=== PATIENT | male | born 1940 | race Caucasian/White ===

== ENCOUNTER 2020-06-08 10:06 | Inpatient (IN) ==
[2020-06-08] MEDS ORDERED: Azithromycin 250 MG TABLET PO ONE (10:20)
[2020-06-08] MEDS ORDERED: methylPREDNISolone 125 MG/2 ML VIAL IVP ONE (10:20)
[2020-06-08] MEDS ORDERED: Ipratropium/Albuterol Neb 3 ML IH ONE (10:20)
[2020-06-08 10:52] LABS: Basophils % 1.4 %; Immature Granulocytes % 0.3 % (0-4); Platelet Count 153 K/mcL (140-400)
[2020-06-08 10:53] LABS: Basophils # 0.1 K/mcL (0.0-0.2); Eosinophils # 0.1 K/mcL (0.0-0.6); Eosinophils % 3.1 %; Hematocrit 21.3 % (37.5-50.1); Lymphocytes # 0.9 K/mcL (0.6-4.6); Lymphocytes % 26.2 %; Mean Corpuscular HGB Conc 27.2 g/dL (31.6-35.5); Mean Corpuscular Hemoglobin 22.7 pg (28.0-33.3); Mean Corpuscular Volume 83.5 fL (83.0-100.0); Mean Platelet Volume 10.9 fL (9.4-12.4); Monocytes # 0.4 K/mcL (0.0-1.3); Monocytes % 12.1 %; Red Blood Count 2.55 M/mcL (4.19-5.50); Segmented Neutrophils % 56.9 %; White Blood Count 3.6 K/mcL (4.3-11.1)
[2020-06-08 10:58] LABS: Neutrophils # 2.1 K/mcL (1.6-8.9)
[2020-06-08 11:00] LABS: Hemoglobin 5.8 g/dL (12.9-16.9)
[2020-06-08 11:08] LABS: INR 1.2; Prothrombin Time 13.4 Seconds (9.4-12.1)
[2020-06-08 11:11] LABS: Activated Partial Thrombo Time 30.4 Seconds (26.0-36.0)
[2020-06-08 11:15] LABS: Alanine Aminotransferase 11 Units/L (7-52); Albumin 3.3 g/dL (3.5-5.7); Albumin/Globulin Ratio 1.4 (1.1-2.2); Alkaline Phosphatase 76 Units/L (34-104); Aspartate Amino Transferase 19 Units/L (13-39); BUN/Creatinine Ratio 23 (6-26); Bilirubin,Direct 0.1 mg/dL (0.0-0.2); Bilirubin,Indirect 0.4 mg/dL (0.0-1.0); Bilirubin,Total 0.5 mg/dL (0.3-1.0); Blood Urea Nitrogen 16 mg/dL (8-23); Calcium 8.1 mg/dL (8.6-10.3); Carbon Dioxide 27 mEq/L (23-29); Chloride 108 mEq/L (98-107); Globulin 2.3 g/dL (2.4-3.5); Glucose 138 mg/dL (70-105); Osmolality,Calculated 293 (280-300); Potassium 4.3 mEq/L (3.5-5.1); Sodium 140 mEq/L (136-145); Total Protein 5.6 g/dL (6.4-8.9); Troponin I 0.07 ng/mL (< 0.04); eGFR For African Americans > 60 (> 60); eGFR For Non-African Americans > 60 (> 60)
[2020-06-08 11:21] LABS: Anisocytosis 1+ (Not Present); Hypochromasia Present (Not Present); Platelet Estimate Normal (Normal)
[2020-06-08 11:22] LABS: Large Platelets Present (Not Present); Poikilocytosis 1+ (Not Present)
[2020-06-08 12:52] LABS: Adenovirus Not Detected (Not Detect); Coronavirus 229E Not Detected (Not Detect); Coronavirus HKU1 Not Detected (Not Detect); Coronavirus NL63 Not Detected (Not Detect); Coronavirus OC43 Not Detected (Not Detect); Human Metapneumovirus Not Detected (Not Detect); Human Rhinovirus/Enterovirus Not Detected (Not Detect); SARS-CoV-2 Not Detected (Not Detect)
[2020-06-08 12:53] LABS: Bordetella Pertussis Not Detected (Not Detect); Chlamydophila pneumoniae Not Detected (Not Detect); Influenza A Subtype 2009 H1 Not Detected (Not Detect); Influenza B Not Detected (Not Detect); Mycoplasma pneumoniae Not Detected (Not Detect); Parainfluenza Virus 1 Not Detected (Not Detect); Parainfluenza Virus 2 Not Detected (Not Detect); Parainfluenza Virus 3 Not Detected (Not Detect); Parainfluenza Virus 4 Not Detected (Not Detect); Respiratory Syncytial Virus Not Detected (Not Detect)
[2020-06-08] MEDS ORDERED: Naloxone 0.4 MG/ML INJ IVP PRN (13:32)
[2020-06-08] MEDS ORDERED: Albuterol 2.5 MG/3 ML NEBULIZER IH PRN (13:36)
[2020-06-08] MEDS ORDERED: Perflutren Lipid Microsphere 1.3 ML in 0.9 % Sodium Chloride 8.7 ML IVP PRN (14:00)
[2020-06-08] MEDS ORDERED: cefTRIAXone 1,000 MG in 0.9 % Sodium Chloride Mini Bag 100 ML IVPB SCH (14:00)
[2020-06-08] MEDS ORDERED: Furosemide 40 MG/4 ML VIAL IVP ONE (15:33)
[2020-06-08] MEDS: Pantoprazole 40 MG VIAL IVP SCH (16:28)
[2020-06-08] MEDS: methylPREDNISolone 125 MG/2 ML VIAL IVP SCH (16:28)
[2020-06-08] MEDS: cefTRIAXone 1,000 MG in Water for inj. (sterile) 20 ML IVP SCH (16:29)
[2020-06-08] MEDS ORDERED: 0.9 % Sodium Chloride 250 ML ONE ×2 (17:26→23:12)
[2020-06-08] MEDS: Ipratropium/Albuterol Neb 3 ML IH SCH ×2 (18:07→22:45)
[2020-06-08] MEDS ORDERED: Acetaminophen 325 MG TABLET PO ONE (23:49)
[2020-06-09] MEDS: methylPREDNISolone 125 MG/2 ML VIAL IVP SCH ×4 (00:01→20:09)
[2020-06-09 02:09] LABS: Basophils % 0.6 %
[2020-06-09 02:11] LABS: Eosinophils % 0.6 %; Hemoglobin 8.5 g/dL (12.9-16.9); Immature Granulocytes % 0.6 % (0-4); Lymphocytes # 0.2 K/mcL (0.6-4.6); Lymphocytes % 15.1 %; Mean Corpuscular HGB Conc 30.4 g/dL (31.6-35.5); Mean Corpuscular Hemoglobin 25.3 pg (28.0-33.3); Mean Corpuscular Volume 83.3 fL (83.0-100.0); Mean Platelet Volume 10.3 fL (9.4-12.4); Monocytes # 0.1 K/mcL (0.0-1.3); Monocytes % 6.9 %; Neutrophils # 1.2 K/mcL (1.6-8.9); Platelet Count 134 K/mcL (140-400); Red Blood Count 3.36 M/mcL (4.19-5.50); Segmented Neutrophils % 76.2 %; White Blood Count 1.6 K/mcL (4.3-11.1)
[2020-06-09 02:26] LABS: BUN/Creatinine Ratio 21 (6-26); Blood Urea Nitrogen 15 mg/dL (8-23); Carbon Dioxide 28 mEq/L (23-29); Chloride 103 mEq/L (98-107); Glucose 129 mg/dL (70-105); Osmolality,Calculated 293 (280-300); Potassium 4.1 mEq/L (3.5-5.1); Sodium 140 mEq/L (136-145); eGFR For African Americans > 60 (> 60); eGFR For Non-African Americans > 60 (> 60)
[2020-06-09 02:27] LABS: % Iron Saturation 5 % (20-55); Iron 17 mcg/dL (65-175); Transferrin 243 mg/dL (203-362)
[2020-06-09 02:36] LABS: Anisocytosis 1+ (Not Present); Hypochromasia Present (Not Present); Platelet Estimate Slight Decrease (Normal)
[2020-06-09 02:46] LABS: Ferritin 17 ng/mL (20-250)
[2020-06-09 02:51] LABS: Folate 16.4 ng/mL (3.0-16.0)
[2020-06-09] MEDS: Ipratropium/Albuterol Neb 3 ML IH SCH ×4 (03:56→21:46)
[2020-06-09] MEDS: Pantoprazole 40 MG VIAL IVP SCH ×2 (05:46→18:06)
[2020-06-09] MEDS: Azithromycin 250 MG TABLET PO SCH (07:29)
[2020-06-09] MEDS ORDERED: *HR* OxyCODONE Immed Rel 5 MG TABLET PO PRN (11:59)
[2020-06-09] MEDS: *HR* HYDROcodone/Acet 5/325 mg TABLET PO PRN ×2 (12:22→18:06)
[2020-06-09] MEDS: cefTRIAXone 1,000 MG in Water for inj. (sterile) 20 ML IVP SCH (15:02)
[2020-06-10 00:55] LABS: Hematocrit 26.3 % (37.5-50.1); Hemoglobin 7.9 g/dL (12.9-16.9); Mean Corpuscular Hemoglobin 24.9 pg (28.0-33.3); Mean Platelet Volume 10.4 fL (9.4-12.4); Platelet Count 129 K/mcL (140-400); Red Blood Count 3.17 M/mcL (4.19-5.50); Red Cell Distribution Width 17.2 % (11.5-14.5)
[2020-06-10 00:58] LABS: White Blood Count 3.9 K/mcL (4.3-11.1)
[2020-06-10 01:15] LABS: BUN/Creatinine Ratio 41 (6-26); Blood Urea Nitrogen 26 mg/dL (8-23); Calcium 7.9 mg/dL (8.6-10.3); Carbon Dioxide 27 mEq/L (23-29); Chloride 107 mEq/L (98-107); Glucose 137 mg/dL (70-105); Osmolality,Calculated 297 (280-300); Potassium 4.4 mEq/L (3.5-5.1); Sodium 140 mEq/L (136-145); eGFR For African Americans > 60 (> 60); eGFR For Non-African Americans > 60 (> 60)
[2020-06-10] MEDS: *HR* HYDROcodone/Acet 5/325 mg TABLET PO PRN ×3 (01:42→16:28)
[2020-06-10] MEDS: Ipratropium/Albuterol Neb 3 ML IH SCH ×4 (04:25→21:24)
[2020-06-10] MEDS: methylPREDNISolone 125 MG/2 ML VIAL IVP SCH ×3 (05:56→19:30)
[2020-06-10] MEDS: Pantoprazole 40 MG VIAL IVP SCH ×2 (06:00→16:29)
[2020-06-10] MEDS: Pregabalin 50 MG CAPSULE PO SCH (07:31)
[2020-06-10] MEDS: Azithromycin 250 MG TABLET PO SCH (07:32)
[2020-06-10 11:04] LABS: Hemoglobin 8.8 g/dL (12.9-16.9)
[2020-06-10] MEDS: cefTRIAXone 1,000 MG in Water for inj. (sterile) 20 ML IVP SCH (15:11)
[2020-06-10] MEDS ORDERED: SODIUM CHLORIDE/NAHCO3/KCL/PEG 4,000 ML SOLN.RECON PO ONE (17:00)
[2020-06-10 18:27] LABS: Hematocrit 26.8 % (37.5-50.1); Hemoglobin 7.9 g/dL (12.9-16.9)
[2020-06-11] MEDS: Ipratropium/Albuterol Neb 3 ML IH SCH ×4 (03:21→21:37)
[2020-06-11] MEDS: methylPREDNISolone 125 MG/2 ML VIAL IVP SCH ×3 (05:06→23:56)
[2020-06-11] MEDS: Pantoprazole 40 MG VIAL IVP SCH ×2 (05:07→17:08)
[2020-06-11] MEDS: *HR* HYDROcodone/Acet 5/325 mg TABLET PO PRN ×3 (06:02→17:08)
[2020-06-11] MEDS: Pregabalin 50 MG CAPSULE PO SCH (07:35)
[2020-06-11] MEDS: Azithromycin 250 MG TABLET PO SCH (07:35)
[2020-06-11 12:40] LABS: Hemoglobin 8.5 g/dL (12.9-16.9); Mean Corpuscular HGB Conc 29.3 g/dL (31.6-35.5); Mean Corpuscular Hemoglobin 24.5 pg (28.0-33.3); Mean Corpuscular Volume 83.6 fL (83.0-100.0); Mean Platelet Volume 10.5 fL (9.4-12.4); Platelet Count 107 K/mcL (140-400); Red Blood Count 3.47 M/mcL (4.19-5.50)
[2020-06-11] MEDS ORDERED: Lidocaine -MPF 2% 2 ML VIAL ONE (12:48)
[2020-06-11 12:53] LABS: BUN/Creatinine Ratio 24 (6-26); Blood Urea Nitrogen 15 mg/dL (8-23); Calcium 7.8 mg/dL (8.6-10.3); Carbon Dioxide 30 mEq/L (23-29); Chloride 106 mEq/L (98-107); Glucose 112 mg/dL (70-105); Osmolality,Calculated 294 (280-300); Sodium 141 mEq/L (136-145); eGFR For African Americans > 60 (> 60); eGFR For Non-African Americans > 60 (> 60)
[2020-06-11] MEDS ORDERED: *HR* PHENYLEPHRINE 1,000 MCG/10 ML SYRINGE IVP ONE (14:24)
[2020-06-12] MEDS: Ipratropium/Albuterol Neb 3 ML IH SCH ×3 (04:04→16:05)
[2020-06-12] MEDS: Pantoprazole 40 MG VIAL IVP SCH (05:08)
[2020-06-12 06:25] LABS: BUN/Creatinine Ratio 29 (6-26); Blood Urea Nitrogen 19 mg/dL (8-23); Calcium 7.8 mg/dL (8.6-10.3); Carbon Dioxide 30 mEq/L (23-29); Chloride 107 mEq/L (98-107); Glucose 96 mg/dL (70-105); Magnesium 2.4 mg/dL (1.6-2.6); Osmolality,Calculated 300 (280-300); Potassium 4.5 mEq/L (3.5-5.1); Sodium 144 mEq/L (136-145); eGFR For African Americans > 60 (> 60); eGFR For Non-African Americans > 60 (> 60)
[2020-06-12 06:26] LABS: Immature Platelets 5.2 % (1.1-6.1); Mean Corpuscular HGB Conc 29.6 g/dL (31.6-35.5); Mean Corpuscular Hemoglobin 24.7 pg (28.0-33.3); Mean Corpuscular Volume 83.3 fL (83.0-100.0); Mean Platelet Volume 11.3 fL (9.4-12.4); Red Blood Count 3.24 M/mcL (4.19-5.50); Red Cell Distribution Width 18.5 % (11.5-14.5); White Blood Count 2.9 K/mcL (4.3-11.1)
[2020-06-12] MEDS: Pregabalin 50 MG CAPSULE PO SCH (07:54)
[2020-06-12] MEDS: *HR* HYDROcodone/Acet 5/325 mg TABLET PO PRN ×2 (07:54→16:55)
[2020-06-12] MEDS ORDERED: 0.9 % Sodium Chloride 250 ML IVC SCH (09:45)
[2020-06-12] MEDS: methylPREDNISolone 125 MG/2 ML VIAL IVP SCH (10:32)
[2020-06-12 13:22] VITALS: BP 106/58
[2020-06-12 16:07] LABS: Hematocrit 32.3 % (37.5-50.1); Hemoglobin 9.9 g/dL (12.9-16.9)
[2020-06-12] MEDS ORDERED: predniSONE 20 MG TABLET PO ONE ×3 (16:25→17:00)
== END 2020-06-12 17:41 | disposition home or self-care (01) | DRG 377 ==
LOC: EMEROOARM 10:06 → 2ANU 10:06 → SUATTDRO 14:39 → 2ANU 15:21
PROVIDERS: ADMIT Internal Medicine; ATTEND Internal Medicine

== ENCOUNTER 2021-06-11 14:16 | Inpatient (IN) ==
[2021-06-11] MEDS ORDERED: Ipratropium/Albuterol Neb 3 ML IH ONE (15:16)
[2021-06-11] MEDS ORDERED: methylPREDNISolone 125 MG/2 ML VIAL IVP ONE (15:16)
[2021-06-11] MEDS ORDERED: Azithromycin 500 MG in 0.9 % Sodium Chloride 250 ML IVPB ONE (15:16)
[2021-06-11] MEDS ORDERED: Isovue-370 500 ML BOTTLE IVP ONE (15:16)
[2021-06-11 15:30] LABS: Basophils % 1.4 %; Eosinophils # 0.1 K/mcL (0.0-0.6); Eosinophils % 5.4 %; Hemoglobin 12.7 g/dL (12.9-16.9); Lymphocytes # 0.9 K/mcL (0.6-4.6); Lymphocytes % 38.7 %; Mean Corpuscular HGB Conc 30.2 g/dL (31.6-35.5); Mean Corpuscular Hemoglobin 25.8 pg (28.0-33.3); Mean Corpuscular Volume 85.2 fL (83.0-100.0); Mean Platelet Volume 9.4 fL (9.4-12.4); Monocytes # 0.4 K/mcL (0.0-1.3); Monocytes % 16.7 %; Neutrophils # 0.8 K/mcL (1.6-8.9); Platelet Count 148 K/mcL (140-400); Red Blood Count 4.93 M/mcL (4.19-5.50); Segmented Neutrophils % 37.8 %; White Blood Count 2.2 K/mcL (4.3-11.1)
[2021-06-11 16:00] LABS: BUN/Creatinine Ratio 16 (6-26); Blood Urea Nitrogen 15 mg/dL (8-23); Carbon Dioxide 33 mEq/L (23-29); Chloride 104 mEq/L (98-107); Glucose 122 mg/dL (70-105); Osmolality,Calculated 294 (280-300); Potassium 4.1 mEq/L (3.5-5.1); Sodium 141 mEq/L (136-145); eGFR For African Americans > 60 (> 60); eGFR For Non-African Americans > 60 (> 60)
[2021-06-11 16:01] LABS: Troponin I 0.03 ng/mL (< 0.04)
[2021-06-11] MEDS ORDERED: Furosemide 40 MG/4 ML VIAL IVP ONE (18:05)
[2021-06-11 20:21] LABS: Influenza A PCR Negative (Negative); Influenza B PCR Negative (Negative); Resp. Syncytial Virus PCR Negative (Negative)
[2021-06-11 20:24] LABS: SARS-CoV-2 by PCR (In House) Negative (Negative)
[2021-06-11] MEDS ORDERED: *HR* HYDROcodone/Acet 5/325 mg TABLET PO PRN (20:57)
[2021-06-11] MEDS ORDERED: Naloxone 0.4 MG/ML INJ IVP PRN (20:57)
[2021-06-11] MEDS ORDERED: Melatonin 3 MG TABLET PO PRN (20:57)
[2021-06-11] MEDS ORDERED: Acetaminophen 325 MG TABLET PO PRN (20:57)
[2021-06-11] MEDS ORDERED: *HR* Promethazine 25 MG/ML VIAL IM PRN (20:57)
[2021-06-11] MEDS ORDERED: Furosemide 20 MG/2 ML VIAL IVP ONE (21:22)
[2021-06-12] MEDS: Budesonide/Formoterol 160/4.5 1 PUFF INH IH SCH ×3 (00:08→20:50)
[2021-06-12] MEDS: Ipratropium/Albuterol Neb 3 ML IH SCH ×7 (00:17→23:42)
[2021-06-12 04:15] LABS: Hematocrit 41.6 % (37.5-50.1); Mean Corpuscular HGB Conc 31.3 g/dL (31.6-35.5); Mean Corpuscular Hemoglobin 25.8 pg (28.0-33.3); Mean Corpuscular Volume 82.5 fL (83.0-100.0); Platelet Count 162 K/mcL (140-400); Red Blood Count 5.04 M/mcL (4.19-5.50); Red Cell Distribution Width 15.9 % (11.5-14.5)
[2021-06-12 04:29] LABS: BUN/Creatinine Ratio 18 (6-26); Blood Urea Nitrogen 18 mg/dL (8-23); Calcium 9.1 mg/dL (8.6-10.3); Carbon Dioxide 32 mEq/L (23-29); Chloride 102 mEq/L (98-107); Glucose 150 mg/dL (70-105); Lactate Dehydrogenase 168 Units/L (140-271); Osmolality,Calculated 299 (280-300); Phosphorous 3.9 mg/dL (2.7-4.5); Potassium 4.2 mEq/L (3.5-5.1); Sodium 142 mEq/L (136-145); Total Protein 6.7 g/dL (6.4-8.9); eGFR For African Americans > 60 (> 60); eGFR For Non-African Americans > 60 (> 60)
[2021-06-12 04:30] LABS: INR 1.1; Prothrombin Time 11.7 Seconds (9.4-12.1)
[2021-06-12] MEDS: MethylPREDNISolone 40 MG/ML VIAL IVP SCH ×2 (05:55→17:24)
[2021-06-12 06:22] LABS: Bilirubin,Urine Negative (Negative); Blood,Urine Trace (Negative); Clarity,Urine Clear (Clear); Color,Urine Colorless (Yellow); Glucose,Urine (UA) 50 mg/dL (Normal); Ketones,Urine Negative (Negative); Leukocyte Esterase,Urine Negative (Negative); Nitrite,Urine Negative (Negative); Protein,Urine Negative (Neg-Trace); Specific Gravity,Urine 1.017 (1.010-1.025); Squamous Epithelial Cell,Urine Few per hpf (None-Few); Urobilinogen,Urine Normal (Normal); WBC,Urine 0-3 per hpf (0-3)
[2021-06-12] MEDS: Azithromycin 250 MG TABLET PO SCH (08:51)
[2021-06-12] MEDS: Cholecalciferol (D-3) 1,000 UNIT (25MCG) TABLET PO SCH (08:51)
[2021-06-12] MEDS: Furosemide 20 MG/2 ML VIAL IVP SCH ×2 (08:52→21:00)
[2021-06-12] MEDS ORDERED: *HR* Enoxaparin 40 MG/0.4 ML SYRINGE SQ SCH (09:00)
[2021-06-12] MEDS ORDERED: Chlorhexidine Rinse 15 ML MOUTHWASH MM SCH (09:00)
[2021-06-12 19:27] LABS: RBC,Pleural Fluid 3000 RBC/mcL
[2021-06-12 19:40] LABS: Glucose,Pleural Fluid 212 mg/dL (No Ref Range); LDH,Pleural Fluid 66 Units/L (No Ref Range); Total Protein,Pleural Fluid < 2.0 g/dL
[2021-06-12 20:06] LABS: Appearance of Pleural Fl Hazy (Clear)
[2021-06-12 20:30] LABS: Basophils,Pleural Fluid 0 %; Eosinophils,Pleural Fluid 0 %
[2021-06-13 03:35] LABS: Basophils % 0.3 %; Hematocrit 37.8 % (37.5-50.1); Hemoglobin 12.1 g/dL (12.9-16.9); Immature Granulocytes % 0.3 % (0-4); Lymphocytes # 0.5 K/mcL (0.6-4.6); Mean Corpuscular Hemoglobin 26.6 pg (28.0-33.3); Mean Corpuscular Volume 83.1 fL (83.0-100.0); Mean Platelet Volume 10.6 fL (9.4-12.4); Monocytes # 0.4 K/mcL (0.0-1.3); Monocytes % 11.7 %; Platelet Count 159 K/mcL (140-400); Red Blood Count 4.55 M/mcL (4.19-5.50); Red Cell Distribution Width 15.9 % (11.5-14.5); Segmented Neutrophils % 75.7 %
[2021-06-13 03:38] LABS: Neutrophils # 2.9 K/mcL (1.6-8.9); White Blood Count 3.8 K/mcL (4.3-11.1)
[2021-06-13] MEDS: Ipratropium/Albuterol Neb 3 ML IH SCH ×3 (03:43→10:51)
[2021-06-13 03:49] LABS: BUN/Creatinine Ratio 28 (6-26); Blood Urea Nitrogen 30 mg/dL (8-23); Calcium 8.9 mg/dL (8.6-10.3); Carbon Dioxide 32 mEq/L (23-29); Chloride 100 mEq/L (98-107); Glucose 179 mg/dL (70-105); Osmolality,Calculated 299 (280-300); Potassium 4.2 mEq/L (3.5-5.1); Sodium 139 mEq/L (136-145); eGFR For African Americans > 60 (> 60); eGFR For Non-African Americans > 60 (> 60)
[2021-06-13] MEDS: MethylPREDNISolone 40 MG/ML VIAL IVP SCH (05:47)
[2021-06-13] MEDS ORDERED: *HR* Enoxaparin 40 MG/0.4 ML SYRINGE SQ SCH (06:00)
[2021-06-13] MEDS: Budesonide/Formoterol 160/4.5 1 PUFF INH IH SCH (07:34)
[2021-06-13] MEDS: Azithromycin 250 MG TABLET PO SCH (08:19)
[2021-06-13] MEDS: Cholecalciferol (D-3) 1,000 UNIT (25MCG) TABLET PO SCH (08:19)
[2021-06-13] MEDS: Furosemide 20 MG/2 ML VIAL IVP SCH (08:20)
[2021-06-13 11:20] VITALS: BP 109/75; PULSE 99; TEMP 96.6; O2SAT 99
== END 2021-06-13 15:11 | disposition home health service (06) | DRG 190 ==
LOC: EMEROOARM 14:16 → 2ANU 14:16 → SUATTDRO 20:01 → 2ANU 21:35
PROVIDERS: ADMIT Internal Medicine; ATTEND Internal Medicine

== ENCOUNTER 2021-09-03 09:57 | Inpatient (IN) ==
[2021-09-03] MEDS ORDERED: Isovue-370 500 ML BOTTLE IVP ONE (12:38)
[2021-09-03] MEDS ORDERED: Ipratropium/Albuterol Neb 3 ML IH ONE (12:38)
[2021-09-03 13:15] LABS: Eosinophils # 0.1 K/mcL (0.0-0.6); Hematocrit 40.5 % (37.5-50.1); Hemoglobin 12.6 g/dL (12.9-16.9); Mean Corpuscular HGB Conc 31.1 g/dL (31.6-35.5); Mean Corpuscular Volume 83.5 fL (83.0-100.0); Mean Platelet Volume 9.4 fL (9.4-12.4); Platelet Count 146 K/mcL (140-400); Red Blood Count 4.85 M/mcL (4.19-5.50); Red Cell Distribution Width 17.8 % (11.5-14.5)
[2021-09-03 13:27] LABS: INR 1.1; Prothrombin Time 12.3 Seconds (9.4-12.1)
[2021-09-03 13:29] LABS: Activated Partial Thrombo Time 34.6 Seconds (26.0-36.0)
[2021-09-03 13:35] LABS: Alanine Aminotransferase 17 Units/L (7-52); Albumin 3.6 g/dL (3.5-5.7); Albumin/Globulin Ratio 1.4 (1.1-2.2); Alkaline Phosphatase 79 Units/L (34-104); Aspartate Amino Transferase 15 Units/L (13-39); BUN/Creatinine Ratio 13 (6-26); Bilirubin,Direct 0.2 mg/dL (0.0-0.2); Bilirubin,Indirect 0.7 mg/dL (0.0-1.0); Bilirubin,Total 0.9 mg/dL (0.3-1.0); Blood Urea Nitrogen 12 mg/dL (8-23); Calcium 9.2 mg/dL (8.6-10.3); Carbon Dioxide 32 mEq/L (23-29); Chloride 102 mEq/L (98-107); Globulin 2.6 g/dL (2.4-3.5); Glucose 106 mg/dL (70-105); Osmolality,Calculated 288 (280-300); Sodium 139 mEq/L (136-145); Total Protein 6.2 g/dL (6.4-8.9); Troponin I 0.03 ng/mL (< 0.04); eGFR For African Americans > 60 (> 60); eGFR For Non-African Americans > 60 (> 60)
[2021-09-03 13:42] LABS: Monocytes # 0.3 K/mcL (0.0-1.3); Neutrophils # 0.7 K/mcL (1.6-8.9); Platelet Estimate Slight Decrease (Normal)
[2021-09-03 13:52] LABS: ABG Base Excess 3 mEq/L (-2 to 3); ABG HCO3 29 mEq/L (21-27); ABG Oxygen Saturation 100 % (95-98); ABG PCO2 49 mmHg (35-45); ABG PH 7.38 pH Units (7.32-7.45); ABG PO2 190 mmHg (85-104); ABG TCO2 30 mEq/L (20-26)
[2021-09-03 14:50] LABS: Influenza A PCR Negative (Negative); Influenza B PCR Negative (Negative); Resp. Syncytial Virus PCR Negative (Negative)
[2021-09-03 14:51] LABS: SARS-CoV-2 by PCR (In House) Negative (Negative)
[2021-09-03] MEDS ORDERED: Azithromycin 500 MG in 0.9 % Sodium Chloride 250 ML IVPB ONE (15:35)
[2021-09-03] MEDS ORDERED: cefTRIAXone 1,000 MG in 0.9 % Sodium Chloride 10 ML IVP ONE (15:35)
[2021-09-03] MEDS ORDERED: Naloxone 0.4 MG/ML INJ IVP PRN (16:49)
[2021-09-03] MEDS ORDERED: Ipratropium/Albuterol Neb 3 ML IH PRN (16:55)
[2021-09-03] MEDS ORDERED: Acetaminophen 325 MG TABLET PO PRN (17:00)
[2021-09-03 17:37] LABS: Bilirubin,Urine Negative (Negative); Blood,Urine Negative (Negative); Clarity,Urine Clear (Clear); Color,Urine Light-Yellow (Yellow); Glucose,Urine (UA) Normal (Normal); Ketones,Urine 10 mg/dL (Negative); Leukocyte Esterase,Urine Negative (Negative); Nitrite,Urine Negative (Negative); Protein,Urine Negative (Neg-Trace); Specific Gravity,Urine > 1.030 (1.010-1.025); Urobilinogen,Urine Normal (Normal)
[2021-09-03] MEDS ORDERED: Perflutren Lipid Microsphere 1.3 ML in 0.9 % Sodium Chloride 8.7 ML IVP PRN (17:39)
[2021-09-03] MEDS: Furosemide 40 MG/4 ML VIAL IVP SCH (18:38)
[2021-09-04 05:16] LABS: Hematocrit 40.5 % (37.5-50.1); Hemoglobin 12.7 g/dL (12.9-16.9); Mean Corpuscular HGB Conc 31.4 g/dL (31.6-35.5); Mean Corpuscular Hemoglobin 26.1 pg (28.0-33.3); Mean Corpuscular Volume 83.3 fL (83.0-100.0); Mean Platelet Volume 9.4 fL (9.4-12.4); Platelet Count 149 K/mcL (140-400); Red Blood Count 4.86 M/mcL (4.19-5.50); Red Cell Distribution Width 17.8 % (11.5-14.5); White Blood Count 2.2 K/mcL (4.3-11.1)
[2021-09-04 05:25] LABS: Lymphocytes # 1.2 K/mcL (0.6-4.6)
[2021-09-04 05:37] LABS: BUN/Creatinine Ratio 13 (6-26); Blood Urea Nitrogen 12 mg/dL (8-23); Calcium 9.1 mg/dL (8.6-10.3); Carbon Dioxide 33 mEq/L (23-29); Chloride 99 mEq/L (98-107); Glucose 75 mg/dL (70-105); Osmolality,Calculated 290 (280-300); Potassium 4.6 mEq/L (3.5-5.1); Sodium 141 mEq/L (136-145); eGFR For African Americans > 60 (> 60); eGFR For Non-African Americans > 60 (> 60)
[2021-09-04 05:54] LABS: Monocytes # 0.3 K/mcL (0.0-1.3); Neutrophils # 0.7 K/mcL (1.6-8.9); Platelet Estimate Normal (Normal)
[2021-09-04] MEDS: *HR* Enoxaparin 40 MG/0.4 ML SYRINGE SQ SCH (05:56)
[2021-09-04] MEDS ORDERED: Ipratropium/Albuterol Neb 3 ML ONE (07:36)
[2021-09-04] MEDS: Ipratropium/Albuterol Neb 3 ML IH SCH ×4 (07:43→20:18)
[2021-09-04] MEDS ORDERED: Acetaminophen 325 MG TABLET PO SCH (10:30)
[2021-09-04] MEDS ORDERED: 0.9 % Sodium Chloride 500 ML IVC ONE (10:33)
[2021-09-04] MEDS: Furosemide 40 MG/4 ML VIAL IVP SCH (10:42)
[2021-09-04] MEDS: cefTRIAXone 2,000 MG in 0.9 % Sodium Chloride 20 ML IVP SCH (16:07)
[2021-09-04] MEDS: Azithromycin 250 MG TABLET PO SCH (16:07)
[2021-09-04] MEDS: Acetaminophen 325 MG TABLET PO SCH (19:09)
[2021-09-04] MEDS: methylPREDNISolone 125 MG/2 ML VIAL IVP SCH (21:47)
[2021-09-05] MEDS: Acetaminophen 325 MG TABLET PO SCH ×3 (00:09→16:35)
[2021-09-05] MEDS: Ipratropium/Albuterol Neb 3 ML IH SCH ×5 (00:30→15:39)
[2021-09-05] MEDS: methylPREDNISolone 125 MG/2 ML VIAL IVP SCH ×2 (06:42→12:33)
[2021-09-05] MEDS: *HR* Enoxaparin 40 MG/0.4 ML SYRINGE SQ SCH (06:43)
[2021-09-05] MEDS ORDERED: Furosemide 40 MG TABLET PO SCH (09:00)
[2021-09-05 15:33] VITALS: BP 94/67; PULSE 102; TEMP 98
[2021-09-05] MEDS: cefTRIAXone 2,000 MG in 0.9 % Sodium Chloride 20 ML IVP SCH (16:35)
[2021-09-05] MEDS: Azithromycin 250 MG TABLET PO SCH (16:36)
[2021-09-05 16:43] VITALS: O2SAT 96
== END 2021-09-05 18:23 | disposition home or self-care (01) | DRG 193 ==
LOC: EMEROOARM 09:57 → 3ANU 09:57 → SUATTDRO 16:33 → 3ANU 20:08
PROVIDERS: ADMIT Family Medicine; ATTEND Internal Medicine